=== PATIENT | male | born 1990 | race Hispanic/Latino ===

== ENCOUNTER 2018-10-20 11:00 | Emergency (ER) | payer OTHER ==
[2018-10-20 11:09] VITALS: BMI 22.4
[2018-10-20 11:10] VITALS: O2SAT 99
[2018-10-20 12:11] LABS: BASO # 0.1 K/uL (0.0-0.2); BASO % 0.8 % (0.0-2.0); EOS # 0.4 K/uL (0.0-0.7); EOS % 4.8 % (0.0-4.0); HEMOGLOBIN 14.4 g/dL (12.0-18.0); LYMPH # 1.5 K/uL (1.0-4.3); LYMPH % 18.5 % (20.0-40.0); MEAN CELL VOLUME 87.1 fl (80.0-94.0); MEAN CORPUSCULAR HEMOGLOBIN 30.3 pg (27.0-31.0); MEAN CORPUSCULAR HGB CONC 34.8 g/dL (33.0-37.0); MEAN PLATELET VOLUME 9.2 fl (7.2-11.7); MONO # 0.6 K/uL (0.0-0.8); MONO % 7.2 % (0.0-10.0); NEUT # 5.4 K/uL (1.8-7.0); NEUT % 68.7 % (50.0-75.0); NRBC % 0.1 % (0.0-0.0); RBC 4.75 Mil/uL (4.40-5.90); WHITE BLOOD COUNT 7.9 K/uL (4.8-10.8)
[2018-10-20 12:25] LABS: ALB/GLOB RATIO 1.4 (1.0-2.1); ALBUMIN 4.2 g/dL (3.5-5.0); ALT/SGPT 32 U/L (21-72); AST/SGOT 22 U/L (17-59); BLOOD UREA NITROGEN 13 mg/dl (9-20); CALCIUM 9.6 mg/dL (8.4-10.2); GFR NON-AFRICAN AMERICAN > 60
--- NOTE | 2018-10-20 13:02 | ED PDOC ---
HPI: CCC, URI, Sore Throat Time Seen by Provider: 10/20/18 11:00 Chief Complaint (Nursing): Flu-like Symptoms Chief Complaint (Provider): Flu like symptoms History Per: Patient History/Exam Limitations: no limitations Onset/Duration Of Symptoms: Days Associated Symptoms: Fever, Cough, Sputum, Myalgias Additional History Per: Patient Additional Complaint(s): 28yo male, otherwise well, no cardiac history, comes to ER for evaluation after he was informed he had an abnormal exam finding. Patient was evaluated in an urgent care this morning, and was informed by the physician that he had a heart murmur. Patient also states over the past 2-3 days, he has had cough, congestion, sinus pain, fever. He reports similar "abnormal heart findings" 4-5 years ago, [place] [facility] [place] cardiac workup including echo and stress test, which were normal. Patient currently denies any chest pain, shortness of breath, and offers no additional complaints. PMD: None Past Medical History Reviewed: Historical Data, Nursing Documentation, Vital Signs Vital Signs: Last Vital Signs Temp 97.7 F 10/20/18 11:09 Pulse 70 10/20/18 11:09 Resp 20 10/20/18 11:09 BP 124/68 10/20/18 11:09 Pulse Ox 99 10/20/18 11:09 - Medical History PMH: No Chronic Diseases Denies: Chronic Kidney Disease - Surgical History Surgical History: No Surg Hx - Family History Family History: States: No Known Family Hx - Social History Current smoker - smoking cessation education provided: No Alcohol: None Drugs: Denies - Immunization History Hx Influenza Vaccination: Yes (2018) - Allergies Allergies/Adverse Reactions: Allergies Allergy/AdvReac Type Severity Reaction Status Date / Time No Known Allergies Allergy Verified 10/20/18 11:24 Review of Systems ROS Statement: Except As Marked, All Systems Reviewed And Found Negative Constitutional: Positive for: Fever, Chills, Malaise Cardiovascular: Negative for: Chest Pain, Palpitations Respiratory: Positive for: Cough, Shortness of Breath, Sputum Gastrointestinal: Negative for: Nausea, Vomiting Neurological: Positive for: Headache. Negative for: Weakness, Numbness Physical Exam - Reviewed Nursing Documentation Reviewed: Yes Vital Signs Reviewed: Yes - Physical Exam Appears: Positive for: Non-toxic, No Acute Distress Head Exam: Positive for: ATRAUMATIC, NORMAL INSPECTION, NORMOCEPHALIC Skin: Positive for: Normal Color, Warm, DRY Eye Exam: Positive for: EOMI, PERRL ENT: Positive for: Other (+ mild sinus tenderness). Negative for: Pharyngeal Erythema, Tonsillar Exudate, Tonsillar Swelling Neck: Positive for: Normal, Painless ROM, Supple Cardiovascular/Chest: Positive for: Regular Rate, Rhythm, Chest Non Tender. Negative for: Tachycardia Respiratory: Positive for: Normal Breath Sounds. Negative for: Wheezing, Respiratory Distress Gastrointestinal/Abdominal: Positive for: Normal Exam, Soft. Negative for: Tenderness Back: Positive for: Normal Inspection. Negative for: L CVA Tenderness, R CVA Tenderness Extremity: Positive for: Normal ROM Neurological/Psych: Positive for: Awake, Alert, Oriented (x 3) - Laboratory Results Result Diagrams: 10/20/18 11:55 10/20/18 11:55 Lab Results: Troponin I < 0.0120 ng/mL (0.00-0.120) 10/20/18 11:55 Total Bilirubin 0.3 mg/dl (0.2-1.3) 10/20/18 11:55 AST 22 U/L (17-59) 10/20/18 11:55 ALT 32 U/L (21-72) 10/20/18 11:55 Alkaline Phosphatase 67 U/L (38-126) 10/20/18 11:55 Total Protein 7.2 G/DL (6.3-8.2) 10/20/18 11:55 Albumin 4.2 g/dL (3.5-5.0) 10/20/18 11:55 Globulin 3.0 gm/dL (2.2-3.9) 10/20/18 11:55 Albumin/Globulin Ratio 1.4 (1.0-2.1) 10/20/18 11:55 - ECG ECG: Positive for: Interpreted By Me, Viewed By Me ECG Rhythm: Positive for: Normal QRS, Normal ST Segment, Sinus Rhythm. Negative for: ST/T Changes Rate: 66 O2 Sat by Pulse Oximetry: 99 (RA) Pulse Ox Interpretation: Normal Medical Decision Making Medical Decision Making: Impression: chest pain, resolved Plan: -- Labs -- Chest x-ray -- EKG -- Rapid flu -- Motrin 600mg PO 1509 Labs reviewed, no clinically significant abnormalities ekg nsr no st elev. Rapid flu negative Chest x-ray reviewed, no active disease. Patient informed of findings and on reassessment, reports feeling much better. Stable for discharge home. Scribe Attestation: Documented by Elaine Redd acting as a scribe for Humera Glasgow MD. Provider Attestation: All medical record entries made by the Scribe were at my direction and personal ly dictated by me. I have reviewed the chart and agree that the record accurately reflects my personal performance of the history, physical exam, medical decision making, and the department course for this patient. I have also personally directed, reviewed, and agree with the discharge instructions and disposition. Disposition - Clinical Impression Clinical Impression: Viral illness - Patient ED Disposition Is Patient to be Admitted: No Counseled Patient/Family Regarding: Studies Performed, Diagnosis, Need For Followup - Disposition Referrals: [facility] [Outside] [facility] [Outside] Disposition: Routine/Home Disposition Time: 15:10 Condition: IMPROVED Additional Instructions: follow up in the clinic in 2 days return to the ED with any worsening or concerning symptoms Instructions: Viral Syndrome (DC) Forms: [employer] ([employer])
[2018-10-20 13:59] VITALS: BP 127/60; RESP 18; TEMP 99.3
[2018-10-20 15:10] VITALS: PULSE 66
--- NOTE | 2018-10-20 15:26 | RAD ---
Date of service: 10/20/2018 HISTORY: Cough COMPARISON: No prior. TECHNIQUE: Chest PA and lateral FINDINGS: LUNGS: No active pulmonary disease. PLEURA: No significant pleural effusion identified. No pneumothorax apparent. CARDIOVASCULAR: No aortic atherosclerotic calcification present. Normal cardiac size. No pulmonary vascular congestion. OSSEOUS STRUCTURES: No significant abnormalities. VISUALIZED UPPER ABDOMEN: Normal. OTHER FINDINGS: None. IMPRESSION: No active disease.
--- NOTE | 2018-10-26 12:08 | CARD ---
APPROVED REPORT Date of service: 10/20/2018 EKG Measurement Heart [id number] <Conclusion> Normal sinus rhythm Normal ECG
== END 2018-10-20 15:46 | disposition home or self-care (01) ==
LOC: H.ER 11:00
DX: B34.9 Viral infection, unspecified (principal)